=== PATIENT | female | born 1985 | race Two or more races ===

== ENCOUNTER 2018-09-03 06:35 | Inpatient (IN) | payer OTHER ==
[2018-09-03 07:27] VITALS: BMI 28.3
[2018-09-03] MEDS ORDERED: ONDANSETRON 4 MG/2 ML VIAL IVPUSH PRN (07:50)
[2018-09-03] MEDS ORDERED: OXYTOCIN 20 UNITS in 0.9% NS 40 UNIT/2,000 ML INFUS.BAG IV ONE (07:58)
[2018-09-03] MEDS ORDERED: CITRIC ACID/SODIUM CITRATE 30 ML UNIT-DOSE CUP PO ONE (08:04)
--- NOTE | 2018-09-03 08:10 | HP ---
Past Medical History - Admission Chief Complaint: Previous History of Present Illness: 33 yo @ 39 weeks gestation, EDC 09/08/18, with previous , is pre op for repeat . History Source: Patient Limitations to Obtaining History: No Limitations - Past Medical History ...: 2 ...Para: 1 ...Term: 1 ...: 0 ...Spon : 0 ...Induced : 0 ...Multiple Gestation: 0 ...LMP: 11/26/17 ... Weeks Gestation by Dates: 40.1 ...EDC by Dates: 09/02/18 ...EDC by Sono: 09/08/18 - Past Surgical History Past Surgical History: Yes: Hx Myomectomy: No Hx Transabdominal Cerclage: No - Smoking History Smoking history: Never smoked Have you smoked in the past 12 months: No - Alcohol/Substance Use Hx Alcohol Use: No History of Substance Use: reports: None - Social History History of Recent Travel: No Home Medications - Allergies Allergies/Adverse Reactions: Allergies Allergy/AdvReac Type Severity Reaction Status Date / Time No Known Allergies Allergy Verified 09/03/18 07:10 - Home Medications Home Medications: Ambulatory Orders 19 Tablet 1 tab PO DAILY 08/27/18 Family Disease History - Family Disease History Family History: Unremarkable Review of Systems - Review of Systems Constitutional: reports: No Symptoms Eyes: reports: No Symptoms HENT: reports: No Symptoms Neck: reports: No Symptoms Cardiovascular: reports: No Symptoms Respiratory: reports: No Symptoms Gastrointestinal: reports: No Symptoms Genitourinary: reports: No Symptoms Breasts: reports: No Symptoms Reported Musculoskeletal: reports: No Symptoms Integumentary: reports: No Symptoms Neurological: reports: No Symptoms Psychiatric: reports: No Symptoms Pain Intensity: 0 Physical Exam - Maternity Vital Signs: Vital Signs Temperature 97.6 F 09/03/18 07:19 Pulse Rate 75 09/03/18 07:19 Respiratory Rate 20 09/03/18 07:19 Blood Pressure 113/78 09/03/18 07:19 O2 Sat by Pulse Oximetry (%) Constitutional: Yes: Well Nourished Eyes: Yes: Conjunctiva Clear HENT: Yes: Atraumatic Neck: Yes: Supple Cardiovascular: Yes: Regular Rate and Rhythm Lungs: Clear to auscultation - Abdominal Exam/OB Number of Fetuses: Single Presentation: Vertex - Physical Exam Musculoskeletal: Yes: WNL Extremities: Yes: WNL Integumentary: Yes: WNL ...Motor Strength: WNL Psychiatric: Yes: Alert, Oriented Problem List - Problems (1) Previous section Code(s): Z98.891 - HISTORY OF UTERINE SCAR FROM PREVIOUS SURGERY Assessment/Plan Previous Pre op for repeat Consent signed Anesthesia to see patient
[2018-09-03] MEDS ORDERED: ELECTROLYTE-148 SOLN 1,000 ML IV SCH ×2 (08:15→08:30)
[2018-09-03] MEDS ORDERED: ceFAZolin SODIUM 1 GM VIAL ONE (08:43)
[2018-09-03] MEDS ORDERED: OXYTOCIN 10 UNITS/ML VIAL ONE (08:54)
[2018-09-03] MEDS ORDERED: ACETAMINOPHEN INJECTION 100 ML IVPB ONE (09:11)
[2018-09-03] MEDS ORDERED: oxyCODONE HCL 5 MG TABLET PO PRN (09:32)
[2018-09-03] MEDS ORDERED: IBUPROFEN 600 MG TABLET (FP) PO PRN (09:32)
[2018-09-03] MEDS ORDERED: METHYLERGONOVINE MALEATE 0.2 MG/1 ML AMP IM PRN (09:32)
--- NOTE | 2018-09-03 09:37 | OP ---
Operative Note - Note: Operative Date: 09/03/18 Pre-Operative Diagnosis: Previous in labor Operation: Repeat Post-Operative Diagnosis: Same as Pre-op Surgeon: Kalpana Nolasco [employer] Technician: Les Gibson Specimens Removed: Placenta Estimated Blood Loss (mls): 600 Operative Report Dictated: Yes
[2018-09-03] MEDS: OXYTOCIN 20 UNITS in 0.9% NS 20 UNIT/1,000 ML INFUS.BAG IV SCH ×2 (11:00→13:01)
--- NOTE | 2018-09-03 11:17 | PN ---
Progress Note (short form) - Note Progress Note: Attended Rpt C/S for this 33yrs old mother Maternal PNL- nl GBS- Pos - not in labor/No ROM delivered clear fluid, cried soon after suctioned/ dried Cord 3V, 9/9 Infant clinically stable, Not in distress PE nl for age. RNBC Watch for Resp distress Encourage BF/ Bonding
[2018-09-04] MEDS: SIMETHICONE 80 MG TAB.CHEW (FP) PO PRN ×3 (04:45→20:09)
[2018-09-04] MEDS: IBUPROFEN 600 MG TABLET (FP) PO PRN ×3 (04:46→20:09)
[2018-09-04] MEDS: ACETAMINOPHEN 325 MG TABLET (FP) PO PRN ×3 (04:47→20:09)
--- NOTE | 2018-09-04 07:40 | OP ---
DATE OF OPERATION: 09/03/2018 PREOPERATIVE DIAGNOSIS: Previous section at 39 weeks gestation. POSTOPERATIVE DIAGNOSIS: Previous section at 39 weeks gestation. PROCEDURE: Repeat low transverse section. SURGEON: Kalpana Nolasco MD ANESTHESIA: Spinal. COMPLICATIONS: None. ESTIMATED BLOOD LOSS: 600 mL. DESCRIPTION OF PROCEDURE: Patient was taken to the operating room, where spinal anesthesia was administered. Patient was then prepped and draped in proper sterile fashion. A Pfannenstiel skin incision was made and carried down through the underlying layer of fascia. The fascia was incised in the midline and extended laterally. The superior aspect of the fascial incision was then grasped with a Sunil clamp, elevated, and the rectus muscle dissected off bluntly. Attention was then turned to the inferior aspect of the fascial incision, which in a similar fashion was then grasped with the Sunil clamp, elevated, and the rectus muscle dissected out bluntly. The rectus muscle was then in the midline. The peritoneum was identified and entered sharply with the Metzenbaum scissors. The peritoneal incision was then extended superiorly and inferiorly with good visualization of the bladder. Attention was then turned to the uterus where the vesicouterine peritoneum was then grasped with a pickup and entered sharply with the Metzenbaum scissors. This incision was extended laterally, and a bladder flap created digitally. The bladder blade was then reinserted. The lower uterine segment was incised using a 10 blade. This incision was extended laterally, and the head delivered atraumatically. Nose and mouth were suctioned, and the cord clamped, and cut. The infant was handed to the awaiting waitstaff. The placenta was then removed manually. The uterus exteriorized and cleared of all clots and debris. The uterine incision was repaired using 0 Biosyn in a running locked fashion. The 2nd layer of the same suture was used as a means to provide excellent hemostasis. Then, the pelvis was then completely irrigated. The uterus was returned to the abdomen. The peritoneum was closed using 2-0 Biosyn, and the fascia was reapproximated using 0 Vicryl in a running fashion. Then, the skin was closed with alli. Patient tolerated the procedure well. Patient was then taken to PACU in stable condition. PATHOLOGY: Placenta. Charo WELLER/[id number]
[2018-09-04 08:05] LABS: BASO % 0.4 % (0-2.0); EOS % 0.2 % (0-4.5); HEMATOCRIT 33.2 % (32.4-45.2); HEMOGLOBIN 10.9 GM/dL (10.7-15.3); LYMPH % 11.9 % (8-40); MCH 29.8 pg (25.7-33.7); MCHC 32.7 g/dl (32.0-36.0); MEAN PLT VOLUME 8.4 fl (7.5-11.1); MONO % 8.7 % (3.8-10.2); NEUT % 78.8 % (42.8-82.8); PLATELET COUNT 258 K/MM3 (134-434); RBC 3.65 M/mm3 (3.60-5.2); RDW 14.6 % (11.6-15.6); WHITE BLOOD COUNT 11.6 K/mm3 (4.0-10.0)
--- NOTE | 2018-09-04 08:25 | PN ---
Progress Note (short form) - Note Progress Note: Anesthesia/pain Pt seen and examined S:Alert and awake Comfortable O: Vital Signs Temperature 98.2 F 09/04/18 07:40 Pulse Rate 73 09/04/18 07:40 Respiratory Rate 18 09/04/18 08:00 Blood Pressure 117/64 09/04/18 07:40 O2 Sat by Pulse Oximetry (%) 99 09/03/18 11:00 CBC, BMP 09/04/18 07:30 A/P: Current Active Problems Previous section (Acute) S/P: c section Doing well post op Continue current care Nicho Soares MD
--- NOTE | 2018-09-04 08:54 | PN ---
Post Progress Note - Subjective Subjective: Pt doing well, no complaints. Pain controlled, tolerating clear diet. Ambulating to bathroom voiding, no flatus yet. Type of Delivery: Repeat C/S Vital Signs: Vital Signs Temperature 98.2 F 09/04/18 07:40 Pulse Rate 73 09/04/18 07:40 Respiratory Rate 18 09/04/18 08:00 Blood Pressure 117/64 09/04/18 07:40 O2 Sat by Pulse Oximetry (%) 99 09/03/18 11:00 Uterus: Yes: Fundus Firm Abdomen/GI: Yes: Abdomen soft Lochia: Yes: Rubra Lochia, amount: Small Extremities: Yes: Calves non-tender Perineum: Yes: Intact Activity: Ambulating - Labs Labs: CBC WBC 11.6 K/mm3 (4.0-10.0) H 09/04/18 07:30 RBC 3.65 M/mm3 (3.60-5.2) 09/04/18 07:30 Hgb 10.9 GM/dL (10.7-15.3) 09/04/18 07:30 Hct 33.2 % (32.4-45.2) 09/04/18 07:30 MCV 91.0 fl (80-96) 09/04/18 07:30 MCH 29.8 pg (25.7-33.7) 09/04/18 07:30 MCHC 32.7 g/dl (32.0-36.0) 09/04/18 07:30 RDW 14.6 % (11.6-15.6) 09/04/18 07:30 Plt Count 258 K/MM3 (134-434) 09/04/18 07:30 MPV 8.4 fl (7.5-11.1) 09/04/18 07:30 Absolute Neuts (auto) 9.2 K/mm3 (1.5-8.0) H 09/04/18 07:30 Neutrophils % 78.8 % (42.8-82.8) 09/04/18 07:30 Lymphocytes % 11.9 % (8-40) D 09/04/18 07:30 Monocytes % 8.7 % (3.8-10.2) 09/04/18 07:30 Eosinophils % 0.2 % (0-4.5) 09/04/18 07:30 Basophils % 0.4 % (0-2.0) 09/04/18 07:30 Nucleated RBC % 0 % (0-0) 09/04/18 07:30 Problem List - Problems (1) delivery delivered Code(s): O82 - ENCOUNTER FOR DELIVERY WITHOUT INDICATION Assessment/Plan Advance diet as tolerated Hgb WNL encourage ambulation routine care
[2018-09-04] MEDS ORDERED: BISACODYL 10 MG SUPP.RECT RC PRN (09:32)
[2018-09-05] MEDS: IBUPROFEN 600 MG TABLET (FP) PO PRN ×3 (06:02→22:20)
[2018-09-05] MEDS: SIMETHICONE 80 MG TAB.CHEW (FP) PO PRN ×2 (06:02→22:20)
[2018-09-05] MEDS: ACETAMINOPHEN 325 MG TABLET (FP) PO PRN ×3 (06:02→22:20)
--- NOTE | 2018-09-05 17:23 | PATH ---
Surgical Pathology Report Patient Name: DHAVAL WASHBURN Med. Rec. #: [id number] /Age/Gender: 1985 (Age: 33) / F Account: [id number] Location: [facility] OBS/CONSULTANT TECHNOLOGY Taken: 09/03/2018 Received: 09/04/2018 Reported: 09/05/2018 Physicians: Kalpana Nolasco M.D. Specimen(s) Received PLACENTA Clinical History 39.2 weeks, repeat Final Diagnosis PLACENTA, SECTION: 503 G THIRD TRIMESTER PLACENTA WITH TRIVASCULAR UMBILICAL CORD AND UNREMARKABLE PLACENTAL MEMBRANES. Electronically Signed Mirela Hicks M.D. Gross Description The specimen is received fresh labeled placenta and is a 503 gram, 18 x 16 x 2.5 cm. placenta with attached membranes and umbilical cord. The attached membranes are white-benz, dull, and insert marginally. The umbilical cord measures 56 cm. in length and averages 1.4 cm. in diameter. The cord inserts eccentrically, 7 cm. to the nearest margin. No true knots or strictures are identified. Cut surface of the umbilical cord reveals 3 vessels. The surface is babb-blue with minimal fibrin deposition and appropriate caliber vessels. The maternal surface is red-brown with focal defects. Sectioning reveals red-brown, spongy parenchyma. No lesions are identified. Concrete Paver sections are submitted in three cassettes as follows: 1- membrane rolls and umbilical cord; 2-3- full thickness sections of placenta. MLSZ/09/04/2018 san/09/04/2018
[2018-09-05] MEDS: OXYTOCIN 20 UNITS in 0.9% NS 20 UNIT/1,000 ML INFUS.BAG IV SCH (20:38)
[2018-09-06 08:09] LABS: BASO % 0.3 % (0-2.0); HEMATOCRIT 29.2 % (32.4-45.2); HEMOGLOBIN 9.7 GM/dL (10.7-15.3); LYMPH % 17.1 % (8-40); MCH 30.2 pg (25.7-33.7); MCHC 33.1 g/dl (32.0-36.0); MEAN CELL VOLUME 91.1 fl (80-96); MEAN PLT VOLUME 8.5 fl (7.5-11.1); MONO % 7.5 % (3.8-10.2); NEUT % 74.1 % (42.8-82.8); PLATELET COUNT 255 K/MM3 (134-434); RDW 14.7 % (11.6-15.6); WHITE BLOOD COUNT 8.5 K/mm3 (4.0-10.0)
--- NOTE | 2018-09-06 08:19 | DS ---
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 Vital Signs: Vital Signs Temperature 98.0 F 09/05/18 22:00 Pulse Rate 87 09/05/18 22:00 Respiratory Rate 18 09/05/18 22:00 Blood Pressure 134/70 09/05/18 22:00 O2 Sat by Pulse Oximetry (%) 99 09/03/18 11:00 Constitutional: Yes: Well Nourished Eyes: Yes: Conjunctiva Clear HENT: Yes: Atraumatic Neck: Yes: Supple Cardiovascular: Yes: Regular Rate and Rhythm Respiratory: Yes: Regular Gastrointestinal: Yes: Normal Bowel Sounds External Genitalia: Yes: Normal Vaginal Exam: Yes: Normal Cervix: Yes: Normal Uterus: Yes: Firm ....Post : Yes: Uterus firm, Slight lochia rubra Breast(s): Yes: WNL Wound/Incision: Yes: Well Approximated, Gaines Intact Neurological: Yes: Alert, Oriented ...Motor Strength: WNL Psychiatric: Yes: Alert, Oriented Delivery - Delivery Type of Anesthesia: Spinal Episiotomy/Laceration: None EBL (cc): 600 Delivery, Single - Stages of Labor Date of Delivery: 09/03/18 Time of Delivery: 08:56 Time Placenta Delivered: 08:57 - Condition of Clinic Nurse/Steam Boiler Fireman Present: Yes Name: Tg Ortiz Gender: Female Weight: 5 lb 12 oz Position: Left, OT Total Hours ROM (Hrs/Mins): 0/2 - 1 Minute Total Score: 9 5 Minutes Total Score: 9 - Feeding Plan Initial Plan: Elected not to breastfeed exclusively throughout hospitalization Discharge Summary Reason For Visit: REPEAT Current Active Problems delivery delivered (Acute) Previous section (Acute) Procedures: Principal: Repeat Low Transverse Hospital Course: Routine care Condition: Good - Instructions Diet, Activity, Other Instructions: Regular diet No driving, no lifting x 2 weeks F/U with MD in 1 week Disposition: HOME - Home Medications Comprehensive Discharge Medication List: Ambulatory Orders 19 Tablet 1 tab PO DAILY 08/27/18
[2018-09-06 08:28] VITALS: BP 130/68; PULSE 88; TEMP 97.8
[2018-09-06] MEDS: ACETAMINOPHEN 325 MG TABLET (FP) PO PRN (09:28)
[2018-09-06] MEDS: IBUPROFEN 600 MG TABLET (FP) PO PRN (09:29)
[2018-09-06] MEDS: SIMETHICONE 80 MG TAB.CHEW (FP) PO PRN (09:30)
== END 2018-09-06 12:45 | disposition home or self-care (01) | DRG 540 ==
LOC: JLDR 06:35 → J3W 11:25
PROVIDERS: ADMIT Obstetrics & Gynecology; ATTEND Obstetrics & Gynecology
PROC: 10D00Z1 Extraction of Products of Conception, Low, Open Approach (ICD-10-PCS; principal; 2018-09-03)
DX: O34.219 Maternal care for unspecified type scar from previous cesarean delivery (principal); O99.824 Streptococcus B carrier state complicating childbirth; Z3A.39 39 weeks gestation of pregnancy; Z37.0 Single live birth
CPT/HCPCS: 36415; 85025; 86900; 88307-TC; J0131

== ENCOUNTER 2023-05-15 14:11 | Emergency (ER) | payer OTHER ==
[2023-05-15 14:35] VITALS: BP 174/111; PULSE 106; RESP 20; TEMP 98; BMI 26.6
[2023-05-15] MEDS ORDERED: ACETAMINOPHEN 500 MG TABLET (FP) PO ONE (14:58)
[2023-05-15 15:23] LABS: BASO % 0.4 % (0-2.0); EOS % 0.3 % (0-4.5); HEMATOCRIT 36.8 % (32.4-45.2); HEMOGLOBIN 12.2 GM/dL (10.7-15.3); LYMPH % 11.5 % (8-40); MCH 32.7 pg (25.7-33.7); MCHC 33.1 g/dl (32.0-36.0); MEAN CELL VOLUME 98.7 fl (80-96); MEAN PLT VOLUME 8.5 fl (7.5-11.1); MONO % 5.5 % (3.8-10.2); NEUT % 82.3 % (42.8-82.8); PLATELET COUNT 309 10^3/uL (134-434); RBC 3.73 M/mm3 (3.60-5.2); RDW 12.3 % (11.6-15.6); WHITE BLOOD COUNT 15.1 K/mm3 (4.0-10.0)
[2023-05-15] MEDS ORDERED: ACETAMINOPHEN 325 MG TABLET (FP) ONE (15:41)
[2023-05-15 15:48] LABS: POTASSIUM 4.2 mmol/L (3.5-5.1)
[2023-05-15 15:51] LABS: CALCIUM 9.3 mg/dL (8.5-10.1)
[2023-05-15 15:52] LABS: ALBUMIN 4.1 g/dl (3.4-5.0); BLOOD UREA NITROGEN 16.6 mg/dL (7-18)
[2023-05-15 15:55] LABS: CREATININE 0.5 mg/dL (0.55-1.3)
[2023-05-15 15:56] LABS: BILIRUBIN,TOTAL 0.2 mg/dL (0.2-1)
[2023-05-15 15:57] LABS: TOT PROT 7.6 g/dl (6.4-8.2)
[2023-05-15 17:01] LABS: EPI CELLS 14 /uL (0-25.1); HYALINE CASTS 0 /uL (0-3.1); URINE APPEARANCE CLEAR; URINE BACTERIA 9 /uL (0-1359); URINE BILIRUBIN NEGATIVE (NEGATIVE); URINE COLOR ORANGE; URINE GLUCOSE (UA) NEGATIVE (NEGATIVE); URINE KETONE TRACE (NEGATIVE); URINE LEUK ESTERASE 1+ (NEGATIVE); URINE NITRITE NEGATIVE (NEGATIVE); URINE PROTEIN 1+ (NEGATIVE); URINE RBC 5594 /uL (0-23.9); URINE UROBILINOGEN 0.2 mg/dL (0.2-1.0); URINE WBC 47 /uL (0-25.8)
[2023-05-15] MEDS ORDERED: KETOROLAC TROMETHAMINE 30 MG/1 ML VIAL IM ONE (18:08)
[2023-05-15] MEDS ORDERED: KETOROLAC TROMETHAMINE 30 MG/1 ML VIAL ONE (18:24)
== END 2023-05-15 18:34 | disposition home or self-care (01) ==
LOC: JER 14:11
PROC: 3E0233Z Introduction of Anti-inflammatory into Muscle, Percutaneous Approach (ICD-10-PCS; principal; 2023-05-15)
DX: N93.9 Abnormal uterine and vaginal bleeding, unspecified (principal); R10.30 Lower abdominal pain, unspecified
CPT/HCPCS: 36415; 76830-TC; 80053; 81003; 84703; 85025; 86850; 86900; 86901; 87086; 93005; 93010; 99285-25